=== PATIENT | male | born 2000 | race African-American/Black ===

== ENCOUNTER 2022-12-16 12:53 | Emergency (ER) | payer BC, SELFPAY ==
[2022-12-16] MEDS ORDERED: Acetaminophen 500 MG TAB ONE (14:20)
[2022-12-16] MEDS ORDERED: Ketorolac Tromethamine 30 MG/ML VIAL ONE (14:20)
[2022-12-16] MEDS ORDERED: Metoclopramide 10 MG/10 ML UDCUP ONE (14:21)
== END 2022-12-16 15:10 | disposition home or self-care (01) ==
LOC: CSHERS 12:53
DX: S09.90XA Unspecified injury of head, initial encounter (principal); W22.8XXA Striking against or struck by other objects, initial encounter
CPT/HCPCS: 70450; 96372; J1885